=== PATIENT | male | born 1985 | race Caucasian/White ===

== ENCOUNTER 2016-05-02 15:24 | Emergency (ER) | payer OTHER ==
--- NOTE | 2016-05-02 15:41 | ER Document Report ---
ED Medical Screen (RME) - General Chief Complaint: Arm Injury Stated Complaint: POSSIBLE HAND/ARM INJURY Time seen by provider: 15:40 Mode of Arrival: Ambulatory Information source: Patient Notes: 31-year-old male had a francisco stand land on his fisted right hand while his elbow was bent and on the ground. Since his hand is broken but he is also complaining of pain in his right olecranon. TRAVEL OUTSIDE OF THE [place] IN LAST 30 DAYS: No Past Medical History Musculoskeltal Medical History: Reports Hx Musculoskeletal Trauma - coccyx fracture Traumatic Medical History: Reports: Hx Fractures - coccyx fracture Past Surgical History: Reports: Hx Abdominal Surgery, Hx Appendectomy, Hx Inguinal Hernia, Other - pilonidal cyst - Immunizations Hx Diphtheria, Pertussis, Tetanus Vaccination: Yes
[2016-05-02 15:42] VITALS: BP 131/77
[2016-05-02] MEDS ORDERED: HYDROCODONE/ACETAMINOPHEN 5-325 MG 6 TAB/DSPK PO PRN (17:34)
[2016-05-02] MEDS ORDERED: HYDROCODONE/ACETAMINOPHEN 5-325 MG TABLET PO ONE (17:34)
--- NOTE | 2016-05-02 17:34 | ER Document Report ---
ED General - General Chief Complaint: Arm Injury Stated Complaint: POSSIBLE HAND/ARM INJURY Mode of Arrival: Ambulatory TRAVEL OUTSIDE OF THE [place] IN LAST 30 DAYS: No - HPI Patient complains to provider of: crush injury right arm Notes: Patient was working on a cart a states and also albuterol when the car fell off the francisco stands and fell his arm. States it was his right arm and spend from the elbow down to the wrist. Patient states he's having pain in the elbow down to the wrist. Patient otherwise has no deformities no other complaints patient does have range of motion of all extremities Past Medical History - General Information source: Patient - Social History Smoking Status: Current Every Day Smoker Chew tobacco use (# tins/day): No Frequency of alcohol use: None Drug Abuse: None Family History: Hypertension, Malignancy. denies: Arthritis, CAD, COPD, CVA, DM , Hyperlipidemia, Thyroid Disfunction Patient has suicidal ideation: No Patient has homicidal ideation: No Renal/ Medical History: Denies: Hx Peritoneal Dialysis Musculoskeltal Medical History: Reports Hx Musculoskeletal Trauma - coccyx fracture Traumatic Medical History: Reports: Hx Fractures - coccyx fracture Past Surgical History: Reports: Hx Abdominal Surgery, Hx Appendectomy, Hx Inguinal Hernia, Other - pilonidal cyst - Immunizations Hx Diphtheria, Pertussis, Tetanus Vaccination: Yes Review of Systems - Review of Systems Constitutional: No symptoms reported EENT: No symptoms reported Cardiovascular: No symptoms reported Respiratory: No symptoms reported Gastrointestinal: No symptoms reported Genitourinary: No symptoms reported Male Genitourinary: No symptoms reported Musculoskeletal: Other - Crush injury left upper extremity Skin: No symptoms reported Hematologic/Lymphatic: No symptoms reported Neurological/Psychological: No symptoms reported Physical Exam - Vital signs Vitals: Temp Pulse Resp BP Pulse Ox 98.2 F 85 16 131/77 H 99 05/02/16 15:30 05/02/16 15:30 05/02/16 15:30 05/02/16 15:30 05/02/16 15:30 Interpretation: Normal - General General appearance: Appears well, Alert - HEENT Head: Normocephalic, Atraumatic Eyes: Normal Pupils: PERRL - Respiratory Respiratory status: No respiratory distress Chest status: Nontender Breath sounds: Normal Chest palpation: Normal - Cardiovascular Rhythm: Regular Heart sounds: Normal auscultation Murmur: No - Abdominal Inspection: Normal Distension: No distension Bowel sounds: Normal Tenderness: Nontender Organomegaly: No organomegaly - Back Back: Normal, Nontender - Extremities General upper extremity: Nontender, Normal color, Normal ROM, Normal temperature. No: Normal inspection - Patient's right arm shows small swelling patient does have Refill less than 2 seconds at the distal tips denies any sensation loss patient does have pulses intact. Range of motion of the fingers and of the wrist are intact. Patient is also has normal range of motion of the elbow. There are multiple abrasions to the hand and the elbow. Patient left arm unaffected General lower extremity: Normal inspection, Nontender, Normal color, Normal ROM , Normal temperature, Normal weight bearing. No: Jocelyne's sign - Neurological Neuro grossly intact: Yes Cognition: Normal Orientation: AAOx4 Micro Coma Scale Eye Opening: Spontaneous Ghulam Coma Scale Verbal: Oriented Micro Coma Scale Motor: Obeys Commands Ghulam Coma Scale Total: 15 Speech: Normal Motor strength normal: LUE, RUE, LLE, RLE Sensory: Normal - Psychological Associated symptoms: Normal affect, Normal mood - Skin Skin Temperature: Warm Skin Moisture: Dry Skin Color: Normal Course - Re-evaluation Re-evalutation: 05/02/16 22:59 X-rays are negative. Patient was warned for signs of compartment syndrome. At this time no signs of compartment syndrome of the compartments are soft and pliable. Patient will be discharged home - Vital Signs Vital signs: Temp Pulse Resp BP Pulse Ox 98.2 F 85 16 131/77 H 99 05/02/16 15:39 05/02/16 15:39 05/02/16 15:39 05/02/16 15:39 05/02/16 15:39 Discharge - Discharge Clinical Impression: Right arm pain Condition: Good Disposition: HOME, SELF-CARE Instructions: Compartment Syndrome Cautions ([facility]), Crush Injury ([facility]), Oral Narcotic Medication ([facility]), Abrasions ([facility]) Additional Instructions: Take medications as prescribed. Return to the ER symptoms worsen. Prescriptions: Hydrocodone Bit/Acetaminophen [Hydrocodon-Acetaminophen 5-325] 1 each PO Q6 #14 tablet
== END 2016-05-02 17:58 | disposition home or self-care (01) ==
LOC: ER 15:24
DX: M79.601 Pain in right arm (principal); F17.200 Nicotine dependence, unspecified, uncomplicated; W23.1XXA Caught, crushed, jammed, or pinched between stationary objects, initial encounter
CPT/HCPCS: 99283

== ENCOUNTER 2016-05-08 19:12 | Emergency (ER) | payer OTHER ==
--- NOTE | 2016-05-08 19:52 | ER Document Report ---
ED Medical Screen (RME) - General Stated Complaint: RIGHT ARM PAIN Time seen by provider: 19:50 Mode of Arrival: Ambulatory Information source: Patient Notes: 31-year-old male presents to ED for follow-up for injury to right arm and hand Wednesday. He states he has an appointment with his PCM for Wednesday. States there is swelling and pain and he states he feels things moving around in his hand. I have greeted and performed a rapid initial assessment of this patient. A comprehensive ED assessment and evaluation of the patient, analysis of test results and completion of medical decision making process will be conducted by an additional ED providers. TRAVEL OUTSIDE OF THE [place] IN LAST 30 DAYS: No Past Medical History Renal/ Medical History: Denies: Hx Peritoneal Dialysis Musculoskeltal Medical History: Reports Hx Musculoskeletal Trauma - coccyx fracture Traumatic Medical History: Reports: Hx Fractures - coccyx fracture Past Surgical History: Reports: Hx Abdominal Surgery, Hx Appendectomy, Hx Inguinal Hernia, Other - pilonidal cyst - Immunizations Hx Diphtheria, Pertussis, Tetanus Vaccination: Yes
--- NOTE | 2016-05-08 22:01 | ER Document Report ---
HPI - HPI Patient complains to provider of: persistant pain Onset: Other - wednesday Onset/Duration: Better Quality of pain: Throbbing Pain Level: 3 Context: 31 yo male sustained crush injury to right elbow and right hand 05-02-16. Seen in ED , xray's negative. Much less swollen but feells subq knot superior to olecranon and somthing moving in dorsal right hand over the 4th MCP when using it. Associated Symptoms: None Exacerbated by: Movement, Other - palpation Relieved by: Denies Similar symptoms previously: No Recently seen / treated by doctor: Yes - ROS ROS below otherwise negative: Yes Systems Reviewed and Negative: Yes All other systems reviewed and negative - DERM Skin Color: Normal Past Medical History - General Information source: Patient - Social History Smoking Status: Current Every Day Smoker Chew tobacco use (# tins/day): No Frequency of alcohol use: Rare Drug Abuse: None Family History: Hypertension, Malignancy Patient has suicidal ideation: No Patient has homicidal ideation: No Renal/ Medical History: Denies: Hx Peritoneal Dialysis Musculoskeltal Medical History: Reports Hx Musculoskeletal Trauma - coccyx fracture Traumatic Medical History: Reports: Hx Fractures - coccyx fracture Past Surgical History: Reports: Hx Abdominal Surgery, Hx Appendectomy, Hx Inguinal Hernia, Other - pilonidal cyst - Immunizations Hx Diphtheria, Pertussis, Tetanus Vaccination: Yes Vertical Provider Document - CONSTITUTIONAL Agree With Documented VS: Yes Exam Limitations: No Limitations General Appearance: No Apparent Distress - INFECTION CONTROL TRAVEL OUTSIDE OF THE [place] IN LAST 30 DAYS: No - HEENT HEENT: Normocephalic - NECK Neck: Supple - MUSCULOSKELETAL/EXTREMETIES Musculoskeletal/Extremeties: MAEW, FROM, Tender - soft tissue subq bruise just superior to olecranon, Edema - minimal, Eccymosis Notes: non tender bones in elbow, forearm, hand and fingers. FROM - NEURO Level of Consciousness: Awake, Alert Motor/Sensory: No Motor Deficit, No Sensory Deficit - DERM Integumentary: Warm, Dry, No Rash Discharge - Discharge Clinical Impression: Contusion Qualifiers: Encounter type: subsequent encounter Contusion area: elbow Laterality: right Qualified Code(s): S50.01XD - Contusion of right elbow, subsequent encounter Hand contusion Qualifiers: Encounter type: subsequent encounter Laterality: right Qualified Code(s): S60.221D - Contusion of right hand, subsequent encounter Condition: Good Disposition: HOME, SELF-CARE Instructions: Contusion ([facility]), Use of [id number] Ibuprofen ([facility]), Warm Packs ([facility]) Additional Instructions: warm compress over the counter tylenol and motrin [facility] for follow up to er any concerns Forms: Return to Work
[2016-05-08] MEDS ORDERED: HYDROCODONE/ACETAMINOPHEN 5-325 MG 6 TAB/DSPK PO PRN (22:32)
[2016-05-08 23:06] VITALS: BP 142/89
== END 2016-05-08 22:58 | disposition home or self-care (01) ==
LOC: ER 19:12
DX: S50.01XD Contusion of right elbow, subsequent encounter (principal); S60.221D Contusion of right hand, subsequent encounter; X58.XXXD Exposure to other specified factors, subsequent encounter; F17.200 Nicotine dependence, unspecified, uncomplicated
CPT/HCPCS: 99283